=== PATIENT | female | born 1960 | race Two or more races ===

== ENCOUNTER 2016-06-24 05:54 | Emergency (ER) | payer MEDICARE, OTHER ==
[~2016-06-24] VITALS: Ht 157.5 cm; Wt 136.1 kg
[~2016-06-24 05:54] MED LIST: ASPI-605 PO; BUPR300T52 PO; ESCI20TA PO; FERR1TAB44 PO; FURO-144 PO; GABA300C PO; HYDR25TA4 PO; INSU100V28 IJ; LOSA100T15 PO; MEGE400O PO; METF10002 PO; METH20TA PO; OMEP20CA10 PO; TRAM50TA2 PO
--- NOTE | 2016-06-24 06:05 | NUR ---
To bed 6 a 56 yo female bibself with c/o "burning like pain with urination x 3 day." patient is aaox4, ambulatory with steady gait. afebrile. breathing even and unlabored. vss. initiated comfort measures. awaiting for er md curran.
--- NOTE | 2016-06-24 06:15 | NUR ---
Dr Adan at bedside for eval.
[2016-06-24 06:41] LABS: APPEARANCE,URINE CLEAR (CLEAR); BILIRUBIN,URINE NEGATIVE (NEGATIVE); BLOOD, URINE NEGATIVE Ery/uL (NEGATIVE); COLOR,URINE YELLOW (YELLOW); KETONES,URINE NEGATIVE (NEGATIVE); LEUKOCYTE ESTERASE ,URINE 1+ (NEGATIVE); NITRITE, URINE NEGATIVE (NEGATIVE); PROTEIN,URINE NEGATIVE (NEGATIVE); UGLUCOSE NEGATIVE (NEGATIVE); UROBILINOGEN,URINE 0.2 EU/dL (0.2)
[2016-06-24 07:03] LABS: ADD URINE CULTURE YES; BACTERIA,URINE 1+ /HPF (None Seen); RBC,URINE 0-2 /HPF (0-2); SQUAMOUS EPITHELIAL CELL,UR Few /HPF (None Seen)
--- NOTE | 2016-06-24 07:13 | NUR ---
Endorsed to Reggie ADAMS for aby.
[2016-06-24 07:27] VITALS: BP 142/69
== END 2016-06-24 07:29 | disposition home or self-care (01) ==
LOC: ER 05:54
DX: N39.0 Urinary tract infection, site not specified (principal); B35.9 Dermatophytosis, unspecified; E66.01 Morbid (severe) obesity due to excess calories; I10 Essential (primary) hypertension; J45.909 Unspecified asthma, uncomplicated; G47.30 Sleep apnea, unspecified; K21.9 Gastro-esophageal reflux disease without esophagitis; E11.9 Type 2 diabetes mellitus without complications; F41.9 Anxiety disorder, unspecified; Z88.0 Allergy status to penicillin; Z79.82 Long term (current) use of aspirin; Z90.49 Acquired absence of other specified parts of digestive tract
CPT/HCPCS: 81001; 82962; 87086; 99284; A4606; 81000-TC; 87186-TC; Z7610

== ENCOUNTER 2017-10-22 12:44 | Emergency (ER) | payer MEDICARE, OTHER ==
[~2017-10-22] VITALS: Ht 157.5 cm; Wt 156.9 kg
[2017-10-22 12:44] VITALS: BP 141/79
[~2017-10-22 12:44] MED LIST changes: -METF10002 PO; +METF10004 PO
[2017-10-22] MEDS ORDERED: diphenhydrAMINE HCL 25 MG CAPSULE PO ONE (13:30)
[2017-10-22] MEDS ORDERED: diphenhydrAMINE HCL 50 MG CAPSULE ONE (13:45)
== END 2017-10-22 13:53 | disposition home or self-care (01) ==
LOC: ER 12:46
DX: S30.860A Insect bite (nonvenomous) of lower back and pelvis, initial encounter (principal); I10 Essential (primary) hypertension; E11.9 Type 2 diabetes mellitus without complications; F32.9 Major depressive disorder, single episode, unspecified; G47.30 Sleep apnea, unspecified; J45.909 Unspecified asthma, uncomplicated; K21.9 Gastro-esophageal reflux disease without esophagitis; F41.9 Anxiety disorder, unspecified; Z90.49 Acquired absence of other specified parts of digestive tract; Z90.89 Acquired absence of other organs; Z88.0 Allergy status to penicillin; Z85.42 Personal history of malignant neoplasm of other parts of uterus; Z60.2 Problems related to living alone; Z79.4 Long term (current) use of insulin; Z79.82 Long term (current) use of aspirin; Z79.84 Long term (current) use of oral hypoglycemic drugs; Z79.899 Other long term (current) drug therapy; W57.XXXA Bitten or stung by nonvenomous insect and other nonvenomous arthropods, initial encounter; Y93.89 Activity, other specified; Y92.89 Other specified places as the place of occurrence of the external cause; Y99.8 Other external cause status
CPT/HCPCS: 99283; A4606; Q0163; Z7610

== ENCOUNTER 2020-02-04 17:56 | Inpatient (IN) | payer MEDICARE, OTHER ==
[~2020-02-04] VITALS: Ht 157.5 cm; Wt 158.8 kg
[2020-02-04] MEDS: ENOXAPARIN SODIUM 40 MG/0.4 ML DISP.SYRIN SQ SCH (00:50)
[2020-02-04] MEDS: BLOOD SUGAR DIAGNOSTIC 1 EACH STRIP VI SCH (01:05)
[~2020-02-04 17:56] MED LIST changes: -LOSA100T15 PO; +LOSA100T31 PO; +METF-442 PO; -METF10004 PO; -OMEP20CA10 PO; +OMEP20CA15 PO
[2020-02-04] MEDS ORDERED: DEXAMETHASONE SOD PHOSPHATE 6 MG in IV D5W 50 ML IV ONE (19:00)
[2020-02-04 19:24] LABS: BASOPHILS # (AUTO) 0.1 /CMM (0.0-0.2); LYMPHOCYTES # (AUTO) 1.4 /CMM (0.8-4.8); MONOCYTES # (AUTO) 0.9 /CMM (0.1-1.30); NEUTROPHILS # (AUTO) 5.6 /CMM (1.8-8.9)
[2020-02-04 19:30] LABS: BASOPHILS % (AUTO) 0.8 % (0.0-2.0); HEMATOCRIT 34 % (33-45); HEMOGLOBIN 10.3 g/dL (11.5-14.8); LYMPHOCYTES % (AUTO) 17.2 % (20.0-44.0); MEAN CORPUSCULAR HGB CONC 30 g/dl (31.0-36.0); MEAN CORPUSCULAR VOLUME 77 fL (82-100); MONOCYTES % (AUTO) 11.7 % (2.0-12.0); NEUTROPHILS % (AUTO) 70.3 % (43.0-81.0); PLATELET COUNT (AUTO) 282 /CMM (150-450); RED BLOOD CELL COUNT(AUTO) 4.37 MIL/uL (4.0-5.2)
--- NOTE | 2020-02-04 19:30 | NUR ---
ASSUMED CARE OF PT, PT AAOX4, PT ON NONRBR 15L, TOLEARTED, SAT 97-98%, PT C/C OF SOB, PT ON MONITOR. NOT IN ACUTE DISTRESS, VSS, NAD NOTED, WCTM
--- NOTE | 2020-02-04 19:34 | NUR ---
The patient was brought by her relative to the emergency department with a chief complaint of shortness of breath; with oxygen saturation recorded at the low 80s on room air.
--- NOTE | 2020-02-04 19:35 | NUR ---
The patient denies having been diagnosed with Covid 19; she denies any possible exposure to Covid as well.
--- NOTE | 2020-02-04 19:35 | NUR ---
Septic work-up done; blood culture-2 sets obtain COVID-19 antigen swab and COVID-19 PCR-both specimen sent to the lab
[2020-02-04 19:41] LABS: ALANINE AMINOTRANSFERASE 27 U/L (12-78); ALBUMIN 2.7 g/dL (3.4-5.0); ALKALINE PHOSPHATASE 112 U/L (46-116); ASPARTATE AMINOTRANSFERASE 44 U/L (15-37); B-TYPE NATRIURETIC PEPTIDE 210 PG/ML (0-125); BILIRUBIN,TOTAL 0.3 mg/dL (0.2-1.0); CALCIUM, SERUM 8.2 mg/dL (8.5-10.1); CARBON DIOXIDE 26 mmol/L (21-32); CHLORIDE 97 mmol/L (98-107); CREATININE 1.3 mg/dL (0.6-1.3); GLUCOSE 360 mg/dL (74-106); POTASSIUM 5.4 mmol/L (3.5-5.1); SODIUM SERUM 134 mmol/L (136-145); TOTAL PROTEIN, SERUM 7.6 g/dL (6.4-8.2); UREA NITROGEN, BLOOD 27 mg/dL (7-18)
[2020-02-04] MEDS ORDERED: DEXAMETHASONE SOD PHOSPHATE 10 MG/ML VIAL ONE (19:41)
[2020-02-04] MEDS ORDERED: ACETAMINOPHEN 325 MG TABLET PO PRN (20:00)
[2020-02-04 20:36] LABS: D-DIMER 0.37 mg/L(FEU (0.17-0.50)
[2020-02-04 20:41] LABS: CREATINE KINASE, TOTAL 329 U/L (26-192); FERRITIN 194 ng/mL (8-388)
[2020-02-04 20:48] LABS: C-REACTIVE PROTEIN 17.9 mg/dL (0.0-0.9)
[2020-02-04] MEDS ORDERED: ONDANSETRON 4 MG TAB.RAPDIS SL PRN (21:00)
--- NOTE | 2020-02-04 21:03 | NUR ---
CALL FROM LAB, RAPID COVID POSITIVE.
[2020-02-04] MEDS ORDERED: ACETAMINOPHEN 650 MG/SUPP.RECT RC PRN (21:30)
[2020-02-04] MEDS ORDERED: AZITHROMYCIN 500 MG in IV D5W 250 ML IV ONE (21:30)
[2020-02-04] MEDS ORDERED: DEXTROSE 50%-WATER 50 ML DISP.SYRIN IV PRN (21:30)
[2020-02-04] MEDS ORDERED: CEFTRIAXONE 1 G in IV D5W 50 ML IV SCH ×2 (21:30→23:49)
[2020-02-04] MEDS ORDERED: TRAMADOL HCL 50 MG TABLET PO PRN (21:30)
[2020-02-04] MEDS ORDERED: *INSULIN REGULAR(HUMULIN R)HUM 100 UNIT/ML VIAL SQ PRN (21:30)
[2020-02-04] MEDS ORDERED: ALBUTEROL SULFATE 8 GM HFA.AER.AD IH PRN (21:30)
[2020-02-04 22:06] LABS: BILIRUBIN,DIRECT 0.1 mg/dL (0.0-0.2)
[2020-02-04] MEDS ORDERED: AZITHROMYCIN 500 MG VIAL ONE (22:11)
--- NOTE | 2020-02-05 00:34 | NUR ---
PT CONT TO BE ON NON-RBR FOR HYPOXIA. SAT 95-97%,DENIES ANY SOB. PT APPEARS COMFORTABLE. NOT IN ANY DISTRESS. WCTM
[2020-02-05] MEDS ORDERED: ENOXAPARIN SODIUM 40 MG/0.4 ML DISP.SYRIN SQ ONE ×2 (00:46→08:01)
[2020-02-05] MEDS: BLOOD SUGAR DIAGNOSTIC 1 EACH STRIP VI SCH ×5 (01:00→22:16)
[2020-02-05] MEDS ORDERED: LEVOFLOXACIN 750 MG /D5W 150ML 750 MG in PREMIX 1 EA IV SCH (01:30)
[2020-02-05] MEDS: INSULIN REGULAR, HUMAN 100 UNIT/ML 3 ML VIAL SQ PRN ×4 (01:36→17:47)
[2020-02-05] MEDS ORDERED: INSULIN REGULAR, HUMAN 100 UNIT/ML 10 ML VIAL ONE (01:50)
[2020-02-05] MEDS ORDERED: LEVOFLOXACIN 750 MG /D5W 150ML 750 MG in PREMIX 1 EA IV ONE (02:00)
--- NOTE | 2020-02-05 02:45 | NUR ---
PER PHARM NOTE, SAV SANDOVAL, INPATIENT HOSPITALIST NEEDS TO CLARIFY.
--- NOTE | 2020-02-05 05:37 | NUR ---
CALLED AFTER HR PHARMACY AT THIS TIME TO VERIFY LEVAQUIN 500. SPOKE TO BURAK.
[2020-02-05] MEDS ORDERED: LEVOFLOXACIN 500 MG /D5W 100ML 100 ML IV ONE (08:01)
[2020-02-05] MEDS ORDERED: DEXAMETHASONE SOD PHOSPHATE 10 MG/ML VIAL ONE (08:01)
[2020-02-05] MEDS ORDERED: ASPIRIN 81 MG TAB.CHEW ONE (08:02)
[2020-02-05] MEDS ORDERED: GABAPENTIN 300 MG CAPSULE ONE ×3 (08:02→17:28)
[2020-02-05] MEDS ORDERED: ESCITALOPRAM OXALATE (10 MG) 10 MG TABLET ONE (08:02)
[2020-02-05] MEDS ORDERED: HYDROCHLOROTHIAZIDE 25 MG TABLET ONE (08:02)
[2020-02-05] MEDS ORDERED: LOSARTAN POTASSIUM 25 MG TABLET ONE (08:02)
[2020-02-05] MEDS: GABAPENTIN 300 MG CAPSULE PO SCH ×4 (08:08→21:08)
[2020-02-05] MEDS: ENOXAPARIN SODIUM 40 MG/0.4 ML DISP.SYRIN SQ SCH (08:09)
[2020-02-05] MEDS: FERROUS SULFATE (325 MG) 325 MG/TAB TABLET PO SCH ×3 (08:49→17:42)
[2020-02-05] MEDS ORDERED: ESCITALOPRAM OXALATE (10 MG) 10 MG TABLET PO SCH (09:00)
[2020-02-05] MEDS ORDERED: MEGESTROL ACETATE SUSP 400 MG/10 ML UDC PO SCH (09:00)
[2020-02-05] MEDS ORDERED: AZITHROMYCIN 500 MG in IV D5W 250 ML IV SCH (09:00)
[2020-02-05] MEDS ORDERED: LEVOFLOXACIN 500 MG /D5W 100ML 500 MG in PREMIX 1 EA IV SCH (09:00)
[2020-02-05] MEDS ORDERED: HYDROCHLOROTHIAZIDE 25 MG TABLET PO SCH (09:00)
[2020-02-05] MEDS ORDERED: DEXAMETHASONE SOD PHOSPHATE 4 MG/ML VIAL IV SCH (09:00)
[2020-02-05] MEDS ORDERED: BUPROPION XL 150 MG TAB.ER.24 PO SCH (09:00)
[2020-02-05] MEDS ORDERED: ASPIRIN EC 81 MG TABLET.DR PO SCH (09:00)
[2020-02-05] MEDS ORDERED: LOSARTAN POTASSIUM 50 MG TABLET PO SCH (09:00)
--- NOTE | 2020-02-05 09:34 | NUR ---
PATIENT A/OX4, ON NRB AT 15LPM WITH SPO2 OF 92-94%. ATE BREAKFAST AND TOLERATED WELL.
--- NOTE | 2020-02-05 12:56 | NUR ---
EDWARDS CATHETER INSERTED VIA STERILE TECHNIQUE ORDERED BY ADRIÁN TEAGUE NP. PATIENT IS NOT TOLERATING MD SHIRLEY ORDERED NCF.
[2020-02-05 16:34] LABS: ABG OXYGEN SATURATION 90.6 % (92.0-98.5); ABG PCO2 54.3 mmHg (35.0-45.0); ABG PH 7.269 (7.350-7.450); ABG PO2 67.3 mmHg (75.0-100.0); AaDO2 591.4 mmHg; COHb 0.6 % (0.5-1.5); MetHb 0.4 % (0.0-1.5); O2Hb 89.7 % (94.0-97.0); SITE, ABG Left Radial; VENT MODE, BG HFNC 100%
--- NOTE | 2020-02-05 17:47 | NUR ---
PATIENT AND FAMILY ARE STILL DECIDING ON REMDESIVIR.
[2020-02-05] MEDS ORDERED: REMDESIVIR (CHARGED) 200 MG, *LOADING DOSE 1 EA in IV NS 0.9% 210 ML IV ONE ×2 (18:00→20:00)
--- NOTE | 2020-02-05 18:25 | NUR ---
RT NOTE TRANSPORTED FROM ER TO 206-2 WITH NON REBREATHER 15L. PLACED BACK ON HFNC 100% @ 60L.
--- NOTE | 2020-02-05 18:30 | NUR ---
PATIENT A/OX4, ENDORSED THE REMDESIVIR TO MARIFEL. PATIENT TRANSFERRED IN GUARDED CONDITION. ON [facility].
--- NOTE | 2020-02-05 19:30 | NUR ---
WORK ORDER SORTING CLERK NOTES RECEIVED ON BED,A/O X3,ON HIGH FOWLERS POSITION,WITH DIFFICULTY OF BREATHING NOTED.PATIENT ON HIGH FLOW OXYGEN AT 60 FIO2 AND NON REBREATHER OXYGEN AT 15L,O2 SAT SAT 87%.RT MADE AWARE,WILL CHECK PATIENT.OBESE,ABLE TO MOVE HERSELF IN BED,WITH EDWARDS CATH IN PLACE DRAINING CLEAR YELLOW URINE OUTPUT.SALINE LOCK LEFT FORE ARM #20 INTACT AND PATENT.NOTED SKIN DISCOLORATION ON BOTH LOWER EXTREMITIES,ABLE TO WALK WITH WALKER BUT ENCOURAGE TO STAY ON BED DUE TO SHORTNESS OF BREATH.CALL LIGHT IN REACH NEEDS ANTICIPATED.
--- NOTE | 2020-02-05 19:33 | NUR ---
RN NOTES PER ER REPORT, AND PATIENT ALSO VERBALIZED, REFUSED REMDESIVIR AT THIS TIME. PHARMACY AWARE.
--- NOTE | 2020-02-05 19:36 | NUR ---
RN NOTES PATIENT AGREES TO REMDESIVIR ADMINISTRATION, SPOKE TO FUNMI FROM PHARMACY AND WILL MAKE MEDICATION. ENDORSE TO ANGIE CASH NOC SHIFT.
[2020-02-05 20:00] VITALS: BP 128/64
--- NOTE | 2020-02-05 20:00 | NUR ---
PRACTICE MANAGER NOTES SR-100 ON TELE MONITOR
--- NOTE | 2020-02-05 20:30 | NUR ---
FINANCIAL INTERNSHIP NOTES DAYSHIFT NURSE INDERJIT SPOKE TO FAMILY MEMBER AND DISCUSS ABOUT CODE STATUS OF PATIENT,AND PER DAUGHTER CHANDAN,PATIENT WANTS TO BE DNR/DNR.
--- NOTE | 2020-02-05 20:33 | NUR ---
MOTOR BUILDER WINDER NOTES STARTED ON LOADING DOSE OF REMDESIVIR 200MG IV,TOLERATED WELL.
--- NOTE | 2020-02-05 20:45 | NUR ---
NETWORK CONTROLLER NOTES MADE FACE TIME WITH PATIENT AND FAMILY MEMBER REGARDING CODE STATUS,AND THAT PATIENT SAY YES TO DNR/DNI STATUS.
--- NOTE | 2020-02-05 20:50 | NUR ---
SURGICAL CORSETIER NOTES HOSPITALIST RADHA DENG WAS PAGE, AWAITING TO CALL BACK
[2020-02-05] MEDS ORDERED: ENOXAPARIN SODIUM 40 MG/0.4 ML DISP.SYRIN SQ SCH (21:00)
--- NOTE | 2020-02-05 21:00 | NUR ---
CORPORATE TRUST OFFICER NOTES HOSPITALIST RADHA DENG CALLED BACK MADE AWARE OF PATIENT CODE STATUS,SAYS TO PUT ORDER.ALSO MADE AWARE THAT PATIENT IS ANXIOUS,WITH ORDER TO GIVE ATIVAN 1MG IV Q 4 HOURS PRN NOTED AND CARRIED OUT.
[2020-02-05 21:06] LABS: IRON, SERUM 12 ug/dl (50-175); TOTAL IRON BINDING CAPACITY 319 ug/dl (250-450)
[2020-02-05] MEDS ORDERED: LORAZEPAM INJ 2 MG/ML VIAL IV PRN (21:30)
--- NOTE | 2020-02-05 21:54 | NUR ---
INDEPENDENT VIDEO PRODUCER NOTES C/O ANXIETY,ATIVAN 1MG IV GIVEN ORDERED.
--- NOTE | 2020-02-05 21:56 | NUR ---
RT NOTE PT RECEIVED ON HIGH FLOW NASAL CANNULA @ 60LPM @ 100% WITH NONBREATHER MASK @ 15LPM 100%. RN REPORTED ATIVAN GIVEN, PT NOTED TO BE LABORED BREATHING WITH SPO2 87% HR 107 RR 28. ORAL SUCTION DONE, SMALL SECRETIONS NOTED. RN SHAILESH AWARE OF PATIENT STATUS. WILL CONTINUE TO MONITOR CLOSELY. Addendum: 02/06/20 at 0038 by YOUSUF GALICIA RT Amended: Links added.
[2020-02-05 22:00] VITALS: BP 128/68
[2020-02-06] VITALS: BP 135/84
[2020-02-06 01:00] VITALS: BP 137/84
--- NOTE | 2020-02-06 02:19 | NUR ---
FIRER RETORT NOTES VOMITED SMALL AMOUNT,MOSTLY MUCUS,ZOFRAN 4MG IV GIVEN ORDERED.
[2020-02-06] MEDS ORDERED: ONDANSETRON HCL/PF 4 MG/2 ML VIAL IV PRN (02:30)
--- NOTE | 2020-02-06 02:30 | NUR ---
RELIABILITY MANAGER NOTES PIPE WELDER MARISSA,JEET NURSE,HR WENT UP TO 200,NURSE SUCTIONING PATIENT.
--- NOTE | 2020-02-06 02:36 | NUR ---
STERILE PROCESSING TECHNOLOGIST NOTES LABORED BREATHING,UNRESPONSIVE,RADHA DNP MADE AWARE WITH ORDER FOR MORPHINE 2MG IVP Q4 PRN NOTED AND CARRIED OUT.
--- NOTE | 2020-02-06 02:50 | NUR ---
PHARMACY ORDER ENTRY TECHNICIAN NOTES LABORED BREATHING NOTED,ORAL SUCTION DONE.
--- NOTE | 2020-02-06 02:50 | NUR ---
DUST MILL OPERATOR NOTES RT AT BEDSIDE TO EVALUATE PT.
[2020-02-06] MEDS ORDERED: MORPHINE SULFATE INJ 2 MG/ML DISP.SYRIN IV PRN (03:00)
--- NOTE | 2020-02-06 03:00 | NUR ---
AMPHIBIOUS OPERATIONS OFFICER NOTES WAITING FOR PHARMACY TO VERIFY MORPHINE
--- NOTE | 2020-02-06 03:15 | NUR ---
GARAGE HELPER NOTES MORPHINE 2MG IVP GIVEN ORDERED AT THIS TIME
--- NOTE | 2020-02-06 03:25 | NUR ---
RN NOTES/CHARGE PATIENT AT THIS TIME, NO BP, NO PULSE , NO RESPIRATION , PUPILS ARE DILATED.
--- NOTE | 2020-02-06 03:25 | NUR ---
INSTRUCTIONAL DESIGN CONSULTANT NOTES ADMITTING MADE AWARE BY RUCHI,SPOKE TO XIN
--- NOTE | 2020-02-06 03:25 | NUR ---
LEATHER FINISHER NOTES PATIENT STOP BREATHING,NO PULSE,ASYSTOLE ON TELE MONITOR,PRONOUNCED BY CHARGE NURSE RUCHI.
--- NOTE | 2020-02-06 03:30 | NUR ---
MISSILE TRACKING TECHNICIAN NOTES FAMILY MEMBER WAS CALLED,SPOKE TO CHANDAN,DAUGHTER,WILL COME AND SEE THE BODY.
--- NOTE | 2020-02-06 03:30 | NUR ---
MINE DEVELOPMENT ENGINEER NOTES NURSING MURAL ARTIST NIMCO MADE AWARE OF
--- NOTE | 2020-02-06 04:40 | NUR ---
MS 2 NOTES FAMILY MEMBER CAME TO SEE THE BODY
--- NOTE | 2020-02-06 05:15 | NUR ---
MS 2 RN NOTES BODY PICK BY SECURITY GOING TO [facility]RI[facility],PATIENT CHART TO NURSING NURSE RN BSN NIMCO.
[2020-02-06] MEDS ORDERED: REMDESIVIR (CHARGED) 100 MG in IV NS 0.9% 230 ML IV SCH ×2 (18:00→20:00)
== END 2020-02-06 03:09 | disposition expired | DRG 871 ==
LOC: ER 18:00 → OBSVTOIN 23:12 → TRANSITION 23:12 → TELE2 02-05 17:56 → TELE-TD 02-05 20:06 → TELE2 02-05 20:14
PROVIDERS: ADMIT Nurse Practitioner Acute Care; ATTEND Nurse Practitioner Acute Care
PROC: XW033E5 Introduction of Remdesivir Anti-infective into Peripheral Vein, Percutaneous Approach, New Technology Group 5 (ICD-10-PCS; principal; 2020-02-05)
DX: A41.89 Other specified sepsis (principal); U07.1 COVID-19; J96.01 Acute respiratory failure with hypoxia; J12.89 Other viral pneumonia; N17.0 Acute kidney failure with tubular necrosis; R65.21 Severe sepsis with septic shock; D68.59 Other primary thrombophilia; E66.2 Morbid (severe) obesity with alveolar hypoventilation; E44.0 Moderate protein-calorie malnutrition; E87.1 Hypo-osmolality and hyponatremia; Z68.44 Body mass index [BMI] 60.0-69.9, adult; E11.65 Type 2 diabetes mellitus with hyperglycemia; E78.5 Hyperlipidemia, unspecified; E87.5 Hyperkalemia; F32.9 Major depressive disorder, single episode, unspecified; G47.33 Obstructive sleep apnea (adult) (pediatric); I10 Essential (primary) hypertension; J45.909 Unspecified asthma, uncomplicated; Z66 Do not resuscitate; Z79.4 Long term (current) use of insulin; Z79.82 Long term (current) use of aspirin; Z85.42 Personal history of malignant neoplasm of other parts of uterus; Z88.0 Allergy status to penicillin; Z90.710 Acquired absence of both cervix and uterus; K21.9 Gastro-esophageal reflux disease without esophagitis
CPT/HCPCS: 31720; 36415; 36600; 71045-TC; 80053-TC; 82248-TC; 82550-TC; 82553; 82728-TC; 82803-TC; 82962-TC; 83540-TC; 83605-TC; 83615-TC; 83880; 84443-TC; 84484-TC; 85025-TC; 85378-TC; 85730-TC; 86140-TC; 87040-TC; 87081-TC; 94799-TC; A4216; A4217; C9803; G0378; J0456; J1100; J1650; J1815; J1956; J2060; J2270; J2405; J7030; J7050; J7060; U0003